=== PATIENT | female | born 1935 | race Caucasian/White ===

== ENCOUNTER 2016-07-27 14:47 | Inpatient (IN) | payer OTHER ==
[~2016-07-27] VITALS: Ht 167.6 cm; Wt 74.3 kg
[2016-07-27 15:37] LABS: HEMATOCRIT 44.1 % (36.0-46.0); MCH 30.1 PG (29.0-34.0); MCHC 32.9 G/DL (30.0-36.0); MCV 91.5 FL (83-99); MEAN PLAT.VOLUME 9.3 uM^3 (9.5-12.4); PLATELET COUNT 263 K/uL (156-360); RBC DIS.WIDTH-CV 14.1 % (11.8-14.6); RBC DIS.WIDTH-SD 46.2 % (39-53); RED BLOOD COUNT 4.82 M/uL (3.80-5.20); WHITE BLOOD COUNT 6.5 K/uL (4.1-10.2)
[2016-07-27 15:48] LABS: CHLORIDE 106 mEq/L (99-109); POTASSIUM 3.7 mEq/L (3.7-5.4); SODIUM 139 mEq/L (136-147)
[2016-07-27 15:49] LABS: GLUCOSE 85 mg/dL (70-99)
[2016-07-27 15:51] LABS: ANION GAP 11 MEQ/L (2-14)
[2016-07-27 15:53] LABS: GFR ESTIMATE (CALCULATED) > 59 mL/min/
[2016-07-27 15:54] LABS: UREA NITROGEN (BUN) 19 mg/dL (9-23)
[2016-07-27 15:58] LABS: TROP-I INTERPRETATION NEGATIVE; TROPONIN-I < 0.01 ng/mL (0.0-0.30)
[2016-07-27] MEDS ORDERED: PROAIR HFA8.5 GM IH (18:54)
[2016-07-27] MEDS ORDERED: BENZONATATE100 MG PO (18:54)
[2016-07-27] MEDS ORDERED: ONE-A-DAY ESSE1 EAC1 PO (18:54)
[2016-07-27] MEDS ORDERED: AUGMENTIN875 MG PO (18:54)
[2016-07-27] MEDS ORDERED: VITAMIN D31000 UNIT PO (18:55)
[2016-07-27] MEDS ORDERED: CALCIUM 500 MG1 EACH PO (18:55)
[2016-07-27] MEDS ORDERED: CYANOCOBALAM1000 MCG PO (18:55)
[2016-07-27 20:08] LABS: D-DIMER ELISA 0.62 mg/L FEU (< 0.57)
[2016-07-27 23:30] VITALS: BP 135/74
[2016-07-28 04:40] VITALS: BP 161/77
[2016-07-28 07:46] LABS: EOSINOPHIL (%) 1.1 % (0-5); EOSINOPHIL COUNT 0.1 K/uL (0-0.3); HEMATOCRIT 41.8 % (36.0-46.0); IMMATURE GRANULOCYTE (%) 0.3 % (0.0-0.7); LYMPHOCYTE COUNT 0.8 K/uL (1.0-2.8); MCH 30.3 PG (29.0-34.0); MCHC 32.5 G/DL (30.0-36.0); MCV 93.1 FL (83-99); MEAN PLAT.VOLUME 9.9 uM^3 (9.5-12.4); MONOCYTE (%) 11.1 % (3-12); MONOCYTE COUNT 0.7 K/uL (0-0.8); NEUTROPHIL (%) 74.7 % (45-76); NEUTROPHIL COUNT 4.6 K/uL (1.8-6.4); PLATELET COUNT 219 K/uL (156-360); RBC DIS.WIDTH-CV 14.1 % (11.8-14.6); RED BLOOD COUNT 4.49 M/uL (3.80-5.20); WHITE BLOOD COUNT 6.2 K/uL (4.1-10.2)
[2016-07-28 07:53] LABS: INTERNAL CONTROL VALID? YES
[2016-07-28 08:03] VITALS: BP 179/74
[2016-07-28 08:15] LABS: ANION GAP 7 MEQ/L (2-14); CHLORIDE 105 MEQ/L (99-109); GFR ESTIMATE (CALCULATED) > 59 mL/min/; GLUCOSE 94 mg/dL (70-99); POTASSIUM 4.1 MEQ/L (3.7-5.4); SAMPLE HEMOLYSIS CHECK 0; SAMPLE ICTERIC CHECK 0; SAMPLE LIPEMIA CHECK 0; SODIUM 139 MEQ/L (136-147); UREA NITROGEN (BUN) 14 mg/dL (9-23)
[2016-07-28 11:30] VITALS: BP 184/86
[2016-07-28 12:10] LABS: INTER. NORMALIZED RATIO 1.1; PROTHROMBIN TIME 10.7 (9.2-11.2); PTT 25.8 (25-32)
[2016-07-28 15:51] LABS: TYPE OF FLUID PLEURAL
[2016-07-28 16:03] VITALS: BP 184/87
[2016-07-28 16:08] LABS: BODY FLUID RBC'S 2000 /MM^3 (0-100); BODY FLUID WBC'S 1453 /MM^3 (0-500)
[2016-07-28 16:35] LABS: BODY FLUID LDH 462 IU/L; BODY FLUID PROTEIN 3.5 G/DL
[2016-07-28 16:37] LABS: BODY FLUID EOSINOPHILS 0 % (0-25); MONO RAW COUNT 58; MONONUCLEAR WBC'S 94 %; POLY RAW COUNT 4; POLYNUCLEAR WBC'S 6 % (0-25)
[2016-07-28 19:58] VITALS: BP 151/84
[2016-07-28 20:44] LABS: ALKALINE PHOSPHATASE 74 IU/L (3-129); DIRECT BILIRUBIN 0.1 mg/dL (0.0-0.3); TOTAL BILIRUBIN 0.6 MG/DL (0.0-1.0)
[2016-07-28 23:56] VITALS: BP 143/67
[2016-07-29 03:25] VITALS: BP 143/67
[2016-07-29 08:00] VITALS: BP 141/72
[2016-07-29 16:17] VITALS: BP 134/71
[2016-07-29 20:12] VITALS: BP 133/67
[2016-07-29 23:57] VITALS: BP 137/72
[2016-07-30 04:26] VITALS: BP 141/66
[2016-07-30 08:00] VITALS: BP 172/88
[2016-07-30 16:10] VITALS: BP 157/78
[2016-07-30 23:26] VITALS: BP 145/68
[2016-07-31 07:05] VITALS: BP 164/81
[2016-07-31 11:30] VITALS: BP 119/58
[2016-07-31 15:16] VITALS: BP 113/56
[2016-07-31] MEDS ORDERED: AMLODIPINE BESYL5 MG PO (15:51)
[2016-07-31] MEDS ORDERED: PREDNISONE10 MG PO (15:51)
[2016-07-31] MEDS ORDERED: CEFTIN500 MG PO (15:51)
== END 2016-07-31 17:32 | disposition home or self-care (01) | DRG 194 ==
LOC: EME 14:47 → 2EAST 20:39 → EDOF 20:39 → 2EAST 23:20
PROVIDERS: Hospitalist; Internal Medicine; Internal Medicine Pulmonary Disease
PROC: 0W993ZX Drainage of Right Pleural Cavity, Percutaneous Approach, Diagnostic (ICD-10-PCS; principal; 2016-07-28)
DX: J18.9 Pneumonia, unspecified organism (principal); J90 Pleural effusion, not elsewhere classified; R91.1 Solitary pulmonary nodule; E04.1 Nontoxic single thyroid nodule; I10 Essential (primary) hypertension; M19.90 Unspecified osteoarthritis, unspecified site; E66.9 Obesity, unspecified; Z68.26 Body mass index [BMI] 26.0-26.9, adult
CPT/HCPCS: 71010; 71020; 71275; 76536; 80048; 80076; 82945; 83615 91; 84157; 84443; 84484; 85025; 85027; 85379; 85610; 85730; 87040; 87070; 87075; 87205; 87449; 88108; 88305; 89051; 93005; 94640; 99202; 99281; 99285; J0456; J0696; J1644; J2543; J3370; J7050; J7512

== ENCOUNTER → 2016-08-21 | Outpatient (CLI) | payer OTHER ==
[~2016-08-21] MED LIST: AMLODIPINE BESYL5 MG PO; AUGMENTIN875 MG PO; BENZONATATE100 MG PO; CALCIUM 500 MG1 EACH PO; CEFTIN500 MG PO; CYANOCOBALAM1000 MCG PO; ONE-A-DAY ESSE1 EAC1 PO; PREDNISONE10 MG PO; PROAIR HFA8.5 GM IH; VITAMIN D31000 UNIT PO
[2016-08-21 14:59] LABS: TYPE OF FLUID PLEURAL
[2016-08-21 15:13] LABS: BODY FLUID RBC'S 4000 /MM^3 (0-100); BODY FLUID WBC'S 1703 /MM^3 (0-500)
[2016-08-21 15:38] LABS: BODY FLUID LDH 356 IU/L; BODY FLUID PROTEIN 3.3 G/DL
[2016-08-21 15:42] LABS: BODY FLUID EOSINOPHILS 0 % (0-25); MONO RAW COUNT 87; MONONUCLEAR WBC'S 87 %; POLY RAW COUNT 13; POLYNUCLEAR WBC'S 13 % (0-25)
== END | disposition home or self-care (01) ==
LOC: RAD 13:28 → EDSTATUS 14:00
PROVIDERS: Internal Medicine Pulmonary Disease
PROC: 0W993ZZ Drainage of Right Pleural Cavity, Percutaneous Approach (ICD-10-PCS; principal; 2016-08-21)
DX: J90 Pleural effusion, not elsewhere classified (principal)
CPT/HCPCS: 71250; 82945; 83615 91; 84157; 87070; 87075; 87205; 88108; 88305; 89051

== ENCOUNTER → 2016-09-07 | Outpatient (CLI) | payer OTHER | END | disposition home or self-care (01) | LOC: RAD 07:45 → EDSTATUS 08:00 → RAD 09-11 09:00 | PROC: 0W993ZZ Drainage of Right Pleural Cavity, Percutaneous Approach (ICD-10-PCS; principal; 2016-09-07) | DX: J90 Pleural effusion, not elsewhere classified (principal) | CPT/HCPCS: 88108 ==

== ENCOUNTER → 2016-09-12 | Outpatient (CLI) | payer OTHER | END | disposition home or self-care (01) | LOC: RAD 12:29 → EDSTATUS 13:00 → RAD 13:00 | PROC: 0W993ZZ Drainage of Right Pleural Cavity, Percutaneous Approach (ICD-10-PCS; principal; 2016-09-12) | DX: J90 Pleural effusion, not elsewhere classified (principal) ==